=== PATIENT | male | born 1965 | race Caucasian/White ===

== ENCOUNTER 2022-04-03 08:38 | Outpatient (CLI) | payer OTHER, SELFPAY ==
--- NOTE | ~2022-04-03 | US_ITS ---
EXAMINATION: US abdomen complete DATE: 04/03/2022 09:13 INDICATION: Other nonspecific abnormal findings of blood chemistry TECHNIQUE: Multiple grayscale and Doppler ultrasound images of the abdomen were obtained. COMPARISON: None available FINDINGS: The head and body of the pancreas are normal. The pancreatic tail is obscured by bowel gas. The liver demonstrates increased echogenicity, heterogenous echotexture, and decreased through trans mission. No surface nodularity. Normal hepatopetal flow in the main portal vein. The gallbladder is s urgically absent. The normal common bile duct measures 4 mm. The visualized portions of the aorta and inferior vena cava are normal. The right kidney measures 10.4 x 5.4 x 4.8 cm. The left kidney measures 12.2 x 6.1 x 4.9 cm. The kidn eys demonstrate normal parenchymal echogenicity. There is no hydronephrosis. The mildly enlarged sple en measures 14.4 cm. IMPRESSION: 1. Diffuse hepatic steatosis. 2. Mild splenomegaly. Reviewed, dictated and finalized at location A. ODONTIC LAB TECHNICIAN
== END 2022-04-03 08:39 | disposition home or self-care (01) ==
LOC: ANHIMG 08:40
PROVIDERS: PCP Internal Medicine; Visit Provider Internal Medicine
DX: R79.89 Other specified abnormal findings of blood chemistry (principal); K76.0 Fatty (change of) liver, not elsewhere classified
CPT/HCPCS: 76700

== ENCOUNTER → 2022-06-14 15:48 | Outpatient (CLI) | payer OTHER, SELFPAY ==
--- NOTE | ~2022-06-14 | MR_ITS ---
EXAMINATION: MR brain IAC wo con DATE: 06/14/2022 16:28 INDICATION: Blurred vision. Cognitive changes. TECHNIQUE: Magnetic resonance imaging (MRI) of the brain, brainstem, and internal auditory canals was performed without intravenous contrast. COMPARISON: None. FINDINGS: There are scattered areas of nonspecific increased T2-weighted signal intensity in the cere bral white matter. There is no intracranial hemorrhage, acute infarction, or abnormal intracranial ma ss lesion. The ventricles are normal in size. The paranasal sinuses are clear. The orbits are normal. The internal auditory canals and inner and middle ears are normal. The mastoid air cells are normal. IMPRESSION: 1. Mild nonspecific cerebral white matter disease, which likely represents chronic small vessel ische tiff disease. Reviewed, dictated and finalized at location A. EE SHOP ATTENDANT IMPRESSION: 1. Mild nonspecific cerebral white matter disease, which likely represents is support analyst ata small vessel ischemic disease.
== END ==
PROVIDERS: PCP Internal Medicine; Visit Provider Internal Medicine
DX: H53.8 Other visual disturbances (principal); R41.89 Other symptoms and signs involving cognitive functions and awareness; R93.0 Abnormal findings on diagnostic imaging of skull and head, not elsewhere classified
CPT/HCPCS: 70551

== ENCOUNTER 2023-02-26 02:32 | Day surgery (SDC) | payer OTHER, SELFPAY ==
[2023-02-14 13:41] VITALS: BMI 29.2
--- NOTE | 2023-02-24 09:30 | SUR.PREOP ---
Patient called regarding upcoming procedure. Reviewed preop instructions, appointment times, and procedure prep.
[2023-02-26 06:20] VITALS: BP 149/92; PULSE 63; RESP 18; TEMP 36.1; O2SAT 100
[2023-02-26] MEDS: LACTATED RINGERS 1,000 ML 150 ML IV CONT (06:29)
--- NOTE | 2023-02-26 07:30 | WPDANESEPPF ---
Anes - Initial Pre Proc Eval Procedure: Operation Date: 02/26/23 07:30 Proposed Procedures p Colonoscopy - Zachary Salas MD Date/Time: 02/26/23 07:30 Surgeon: Zachary Salas MD Pre Op Diagnosis: Other fecal abnormalities Patient Data Age: 57 Gender: M Height: 1.75 m Weight: 95.2 kg Last Vital Signs Temp 96.9 F L 02/26/23 06:20 Pulse 63 02/26/23 06:20 Resp 18 02/26/23 06:20 BP 149/92 H 02/26/23 06:20 Pulse Ox 100 02/26/23 06:20 O2 Del Method Room Air 02/26/23 06:20 Allergies Allergy/AdvReac Type Severity Reaction Status Date / Time No Known Allergies Allergy Verified 02/26/23 06:18 Home Medications Medication Instructions Recorded Confirmed Type anastrozole 1 mg tablet 1 mg PO DAILY 03/12/19 02/26/23 History clomiphene citrate 50 mg tablet 12 mg PO DAILY 03/12/19 02/26/23 History cholecalciferol (vitamin D3) 125 125 mcg PO DAILY 10/29/22 02/26/23 History mcg (5,000 unit) capsule multivitamin 1 tablet PO DAILY 10/29/22 02/26/23 History aspirin 81 mg capsule 81 mg PO DAILY 02/14/23 02/26/23 History Patient hx anesthesia problems: none Family hx anesthesia problems: none Results Review: All pre-operative results and documents have been reviewed as part of the pre-operative evaluation. [facility] Past Medical History Medical History Body mass index (bmi) 30.0-30.9, adult (02/02/18) Nonalcoholic steatohepatitis (GARCIAS) LI (obstructive sleep apnea) Testicular hypofunction Vitamin D deficiency Wasp sting Family History Family History Mother Family history of arthritis Sibling Family history of malignant neoplasm of breast in first degree relative Father Family history of coronary artery disease Other Family history of cardiomyopathy Social History Social History Smoking status: Never smoker Second hand tobacco smoke exposure: No Alcohol intake: never Substance use: unknown Lack of Transportation: No Lack of Food: Never True Current Housing: I Have Housing Concerned About Future Housing: No Difficulty Paying Gas/Electric Bills: Decline to Answer Difficulty Paying for Meds: Decline to Answer Currently Unemployed: Decline to Answer Education: Decline to Answer Difficulty w/ Childcare or Family Care: Decline to Answer Living arrangements: with family Spiritual care concerns: No Anes - Eval Final PreProcedure Day of Procedure 02/26/23 07:30 Patient weight: normal Heart: regular rate and rhythm Lungs: clear to auscultation Airway: Mallampati scale class II Neurological: alert and oriented Last oral intake: >/= 8 hours ASA classification: II Emergent: no Anesthetic plan: proceed Anesthesia type and monitoring: general GIVS and standard monitoring Results Review: All pre-operative results and documents have been reviewed as part of the pre-operative evaluation. Informed Consent: The patient's anesthetic plan and its attendant risks and benefits were discussed with the patient/family/POA. Questions were solicited and answers provided to the satisfaction of the patient/family/POA.
--- NOTE | 2023-02-26 07:36 | PM.HPGS ---
History of Present Illness History of Present Illness Consent: Risks, benefits, and alternatives have been discussed and questions answered. Patient agrees to proceed with procedure. Chief complaint: Other fecal abnormalities Narrative: Anthony Benito is a 57 year old male here with diarrhea and incontinence, he has seen CRS, last colonoscopy in 2013. Had cholecystectomy but questran and imodium did not help much Review of Systems Constitutional: Constitutional: Denies headache(s) and Denies weakness Eyes: Eyes: Denies blurry vision ENT: Reports Normal hearing present, Denies headache(s) and Denies neck pain Cardiovascular: Cardiovascular: Denies chest pain and Denies dyspnea Respiratory: Respiratory: Denies dyspnea Gastrointestinal: Gastrointestinal: Reports no additional gastrointestinal complaints Genitourinary: Genitourinary: Denies dysuria Musculoskeletal: Musculoskeletal: Denies neck pain Integumentary/Breasts: Skin/Breast: Denies dry skin Neurologic: Reports Normal hearing present, Denies headache(s) and Denies weakness Psychiatric: Psychiatric: Denies anxiety Endocrine: Endocrine: Denies change in body appearance Hematologic/Lymphatic: Hematologic/Lymphatic: Denies easy bleeding Allergic/Immunologic: Allergic/Immunologic: Denies urticaria PMFSH Past Medical History Medical History Body mass index (bmi) 30.0-30.9, adult (02/02/18) Nonalcoholic steatohepatitis (GARCIAS) LI (obstructive sleep apnea) Testicular hypofunction Vitamin D deficiency Wasp sting Family History Family History Mother Family history of arthritis Sibling Family history of malignant neoplasm of breast in first degree relative Father Family history of coronary artery disease Other Family history of cardiomyopathy Social History Social History Smoking status: Never smoker Second hand tobacco smoke exposure: No Alcohol intake: never Substance use: unknown Lack of Transportation: No Lack of Food: Never True Current Housing: I Have Housing Concerned About Future Housing: No Difficulty Paying Gas/Electric Bills: Decline to Answer Difficulty Paying for Meds: Decline to Answer Currently Unemployed: Decline to Answer Education: Decline to Answer Difficulty w/ Childcare or Family Care: Decline to Answer Living arrangements: with family Spiritual care concerns: No Meds Home Medications and Allergies Home Medications Medication Instructions Recorded Confirmed Type anastrozole 1 mg tablet 1 mg PO DAILY 03/12/19 02/26/23 History clomiphene citrate 50 mg tablet 12 mg PO DAILY 03/12/19 02/26/23 History cholecalciferol (vitamin D3) 125 125 mcg PO DAILY 10/29/22 02/26/23 History mcg (5,000 unit) capsule multivitamin 1 tablet PO DAILY 10/29/22 02/26/23 History aspirin 81 mg capsule 81 mg PO DAILY 02/14/23 02/26/23 History Allergies Allergy/AdvReac Type Severity Reaction Status Date / Time No Known Allergies Allergy Verified 02/26/23 06:18 Vital Signs Vital Signs - 24 hr 02/26/23 06:20 Temperature 96.9 F L Pulse Rate 63 Respiratory Rate 18 Blood Pressure 149/92 H Pulse Oximetry 100 Oxygen Delivery Room Air Exam Const: General: comfortable and no acute distress HENMT: Face/Nose/Sinus: Normal nares present Eyes: General: appearance normal, both eyes and all related structures Neck: Neck: no JVD Resp: Auscultation: clear to auscultation bilaterally Cardio: Rate: regular rate Rhythm: regular rhythm GI: Inspection: non-distended GI Palp: Yes Soft to palpation Skin: General skin exam: normal color Neuro: General: gait normal Speech: normal speech Extrem: General: normal to inspection Psych: Mental Status: mental status grossly normal Assessment and Plan Assessment and plan (1) Loose sto
[2023-02-26 07:54] VITALS: BP 105/63; PULSE 60; RESP 13; O2SAT 96
[2023-02-26 08:04] VITALS: BP 110/71; PULSE 60; RESP 13; O2SAT 96
[2023-02-26 08:14] VITALS: BP 116/80; PULSE 60; RESP 13; O2SAT 96
== END 2023-02-26 08:15 | disposition home or self-care (01) ==
PROVIDERS: PCP Internal Medicine; Visit Provider Internal Medicine Gastroenterology
PROC: 0DJD8ZZ Inspection of Lower Intestinal Tract, Via Natural or Artificial Opening Endoscopic (ICD-10-PCS; CPT 45378; principal; 2023-02-26 07:30)
DX: K52.832 Lymphocytic colitis (principal); R19.5 Other fecal abnormalities; K57.30 Diverticulosis of large intestine without perforation or abscess without bleeding; K64.8 Other hemorrhoids; R15.9 Full incontinence of feces; G47.33 Obstructive sleep apnea (adult) (pediatric); E55.9 Vitamin D deficiency, unspecified; Z80.3 Family history of malignant neoplasm of breast; Z82.49 Family history of ischemic heart disease and other diseases of the circulatory system; Z79.82 Long term (current) use of aspirin; K75.81 Nonalcoholic steatohepatitis (NASH)
CPT/HCPCS: 45380; 88305; J2704; J7120

== ENCOUNTER 2024-02-13 10:18 | Outpatient (CLI) | payer OTHER, SELFPAY ==
--- NOTE | ~2024-02-13 | XR_ITS ---
EXAMINATION: XR chest 2V 02/13/2024 12:21 INDICATION: Wheezing PROCEDURE: 2 view chest COMPARISON: 06/04/2017 FINDINGS: The lungs are clear. The cardiomediastinal silhouette is within normal limits. There are no pleural effusions. There is no pneumothorax suspected. IMPRESSION: 1: NO ACUTE CARDIOPULMONARY DISEASE. Reviewed, dictated and finalized at location B.
--- NOTE | 2024-02-14 11:14 | WPDSIXMINUTE ---
Six Minute Walk Procedure Procedure Performed Pulmonary Stress Test (6 min walk) Six Minute Walk Six Minute Walk: This is a 6 minute walk test. The test was performed and interpreted in accordance with the 2014 ERS/ATS task force guidelines. Findings: The patient's resting room air oxygen saturation measured by pulse oximetry was 97%, the heart rate was 69 bpm, and the modified Preston dyspnea score was 0. Patient ambulated for 427 meters and oxygen saturation remained 95 to 96%. At the end of the study the heart rate was 88 bpm and the modified Preston dyspnea score was 1. The patient did not qualify for supplemental oxygen at rest or with ambulation. There are no prior studies for comparison.
--- NOTE | 2024-02-14 11:15 | WPDPFTINT ---
PFT Procedure Performed PFT Procedure Performed Spirometry with Pre/Post Bronchodilator Plethysmography (Lung Vol) Diffusing Cap (DLCO) Flow Vol Loop PFT Interpretation This is a pulmonary function test with pre and post-bronchodilator spirometry, plethysmography and diffusing capacity. The test was performed and results interpreted in accordance with the 2019 and 2005 ATS/ERS Task Force guidelines respectively using the Global Lung Function Initiative-2012 reference equations. Patient demonstrated good effort and cooperation. Reproducibility criteria were met. The quality of the pre bronchodilator spirometry maneuver was Grade A and post bronchodilator spirometry maneuver was Grade A. Findings: Spirometry: The contour the inspiratory and expiratory flow tracing are normal. The pre bronchodilator FVC is 4.29 L, 94% predicted. The pre bronchodilator FEV1 is 3.49 L, 98% predicted. The pre bronchodilator FEV1: FVC ratio is 81%. The post bronchodilator FVC is 4.37 L, representing a 2% increase. The post bronchodilator FEV1 is 3.63 L, representing a 4% increase. The post bronchodilator FEV1: FVC ratio is 83%. Plethysmography: The total lung capacity is 6.82 L, 101% predicted. The functional residual capacity is 3.19 L, 91% predicted. The residual volume is 2.37 L, 112% predicted. Diffusing capacity: The diffusing capacity unadjusted for hemoglobin and carboxyhemoglobin is 32.9, 115% predicted. The diffusing capacity adjusted for alveolar volume is 5.64, 128% predicted. Impression: The spirometry is normal without evidence of an obstructive abnormality. There is no significant improvement after inhaling a single dose of albuterol. The lung volumes are normal. The diffusing capacity unadjusted for hemoglobin and carboxyhemoglobin is normal and is increased when adjusted for alveolar volume. There are no prior studies for comparison
== END 2024-02-13 10:19 | disposition home or self-care (01) ==
PROVIDERS: PCP Internal Medicine; Visit Provider Physician Assistant
DX: R06.2 Wheezing (principal); R06.09 Other forms of dyspnea
CPT/HCPCS: 71046; 94060; 94618; 94726; 94729

== ENCOUNTER 2024-03-17 13:42 | Outpatient (CLI) | payer OTHER, SELFPAY ==
--- NOTE | ~2024-03-17 | MR_ITS ---
EXAMINATION: MR brain/brain stem wo con DATE: 03/17/2024 14:12 INDICATION: Memory loss. TECHNIQUE: Magnetic resonance imaging (MRI) of the brain and brainstem was performed without intraven ous contrast. COMPARISON: Brain MRI 06/14/2022 FINDINGS: There are scattered areas of nonspecific increased T2-weighted signal intensity in the cere bral white matter. There is no intracranial hemorrhage, acute infarction, or abnormal intracranial ma ss lesion. The ventricles are normal in size. The paranasal sinuses are clear. The orbits are normal. The mastoid air cells are normal. IMPRESSION: 1. Stable mild nonspecific cerebral white matter disease, which likely represents chronic small vesse l ischemic disease. Reviewed, dictated and finalized at location A. CAL TECHNOLOGIST PRN IMPRESSION: 1. Stable mild nonspecific cerebral white matter disease, which likely represen ts chronic small vessel ischemic disease.
== END 2024-03-17 13:43 | disposition home or self-care (01) ==
PROVIDERS: PCP Internal Medicine
DX: R41.3 Other amnesia (principal); R90.82 White matter disease, unspecified
CPT/HCPCS: 70551